=== PATIENT | male | born 1950 | race Caucasian/White ===

== ENCOUNTER 2017-11-21 13:25 | Emergency (ER) | payer MEDICARE ==
[~2017-11-21 13:25] MED LIST: ASPI-891 PO; ATOR40TA69 PO; CLOP75TA14 PO; FERS325 PO; ISOS60TA4 PO; LATA1OIL MC; LISI-613 PO; SERT100T PO
[2017-11-21] MEDS ORDERED: LIDOCAINE HCL 1% 20 ML VIAL ONE (14:40)
[2017-11-21] MEDS ORDERED: AMOXICILLIN/POTASSIUM CLAV 875-125 TABLET PO ONE (15:43)
== END 2017-11-21 16:16 | disposition home or self-care (01) ==
LOC: EDH 13:25
DX: S61.411A Laceration without foreign body of right hand, initial encounter (principal); S51.031A Puncture wound without foreign body of right elbow, initial encounter; S61.213A Laceration without foreign body of left middle finger without damage to nail, initial encounter; E78.5 Hyperlipidemia, unspecified; I10 Essential (primary) hypertension; I25.10 Atherosclerotic heart disease of native coronary artery without angina pectoris; Z79.01 Long term (current) use of anticoagulants; Z98.890 Other specified postprocedural states; W54.0XXA Bitten by dog, initial encounter; Y93.89 Activity, other specified; Y92.89 Other specified places as the place of occurrence of the external cause; Y99.8 Other external cause status
CPT/HCPCS: 12042; 73080; 73130

== ENCOUNTER → 2017-12-08 | Outpatient (CLI) | payer MEDICARE | END | disposition home or self-care (01) | LOC: RAH 16:09 | PROVIDERS: ATTEND Family Medicine | DX: Z01.818 Encounter for other preprocedural examination (principal) | CPT/HCPCS: 71046 ==

== ENCOUNTER 2019-03-21 14:06 | Inpatient (IN) | payer MEDICARE | END 2019-03-24 14:39 | disposition home or self-care (01) | LOC: EDH 14:06 → 2BH 03-22 13:46 → 2CH 03-22 19:32 → 2AH 03-23 18:51 → EDHIP 18:50 | DX: A41.9 Sepsis, unspecified organism (principal); R65.21 Severe sepsis with septic shock; M62.82 Rhabdomyolysis; E87.1 Hypo-osmolality and hyponatremia; N39.0 Urinary tract infection, site not specified; N17.9 Acute kidney failure, unspecified ==

== ENCOUNTER → 2019-06-28 | Outpatient (CLI) | payer MEDICARE ==
[~2019-06-28] MED LIST changes: +AMIL5TAB8 PO; -ASPI-891 PO; -ATOR40TA69 PO; -CLOP75TA14 PO; -FERS325 PO; +FOLI0.4T2 PO; +HYDR-4060 PO; +HYDR25TA PO; -ISOS60TA4 PO; +LATA2.5D2 OP; -LISI-613 PO; +LORA0.5T2 PO; +PANT40TA25 PO; +RIVA20TA PO; +SAW450CA7 PO; +TIMO5DRO35 OP; +TRAZ-185 PO
== END | disposition home or self-care (01) ==
LOC: SHCH 09:58
PROVIDERS: ATTEND Internal Medicine Cardiovascular Disease
DX: I25.5 Ischemic cardiomyopathy (principal)
CPT/HCPCS: 93306

== ENCOUNTER → 2021-06-25 | Outpatient (CLI) | payer MEDICARE ==
[~2021-06-25] MED LIST changes: -FOLI0.4T2 PO; +FOLI0.4T6 PO; +ISOS60TA77 PO; +LATA2.5D14 OP; -LATA2.5D2 OP; +METO-391 PO; +NITR0.4T50 SL; -PANT40TA25 PO; +PANT40TA54 PO; -SAW450CA7 PO
== END | disposition home or self-care (01) ==
LOC: RAH 12:48
PROVIDERS: ATTEND Family Medicine
DX: N28.1 Cyst of kidney, acquired (principal); N40.0 Benign prostatic hyperplasia without lower urinary tract symptoms
CPT/HCPCS: 76770

== ENCOUNTER → 2021-11-03 | Outpatient (CLI) | payer MEDICARE ==
[~2021-11-03] MED LIST changes: +0.9% NACL 500ML IV.SOLN 500 ML IV SCH
[2021-11-03 14:07] LABS: BASOPHILS % (AUTO) 0.5 % (0.0-5.0); EOSINOPHILS % (AUTO) 4.2 % (0.0-8.0); HEMATOCRIT 42.5 % (42-54); LYMPHOCYTES % (AUTO) 24.4 % (21.0-51.0); MEAN CORPUSCULAR HGB CONC 31.8 g/dL (32.0-36.0); MONOCYTES % (AUTO) 8.3 % (3.0-13.0); NEUTROPHILS % (AUTO) 62.3 % (40.0-77.0); PLATELET COUNT (AUTO) 216 K/uL (130-400); RED BLOOD CELL COUNT(AUTO) 4.83 MIL/uL (4.50-6.20); RED CELL DISTRIBUTION WIDTH 15.8 % (11.0-15.5); WHITE BLOOD COUNT (AUTO) 7.5 K/uL (4.8-10.8)
[2021-11-03 14:09] LABS: APPEARANCE,URINE Cloudy (CLEAR); BILIRUBIN,URINE Negative (NEGATIVE); COLOR,URINE Yellow (YELLOW); GLUCOSE, URINE (UA) Negative (NEGATIVE); KETONES,URINE Negative (NEGATIVE); LEUKOCYTE ESTERASE ,URINE Trace (NEGATIVE); NITRATE,URINE Negative (NEGATIVE); OCCULT BLOOD,URINE Negative (NEGATIVE); PH,URINE 5.5 (5.0-8.0); PROTEIN,URINE Negative (NEGATIVE)
[2021-11-03 14:23] LABS: CREATININE 1.7 mg/dL (0.5-1.5); POTASSIUM 3.9 mmol/L (3.5-5.1)
[2021-11-03 14:26] LABS: INR 1.34 (0.85-1.15); PROTHROMBIN TIME 14.2 SEC (9.6-11.6)
[2021-11-03 14:27] LABS: PARTIAL THROMBOPLASTIN TIME 32.2 SEC (26.3-35.5)
[2021-11-03 14:37] LABS: BACTERIA,URINE Few /HPF (None Seen); MUCUS,URINE Few LPF (None Seen); RBC,URINE 0-1 /HPF (0-1); SQUAMOUS EPITHELIAL CELL,UR Few /HPF (0-2)
== END | disposition home or self-care (01) ==
LOC: DAH 10:00 → EDSTATUS 13:00
PROVIDERS: ATTEND Internal Medicine Cardiovascular Disease
DX: Z01.810 Encounter for preprocedural cardiovascular examination (principal); I20.9 Angina pectoris, unspecified; Z79.01 Long term (current) use of anticoagulants
CPT/HCPCS: 36415; 71045; 80048; 81001; 85025; 85610; 85730; 93005

== ENCOUNTER 2021-11-19 06:48 | Day surgery (SDC) | payer MEDICARE ==
[2021-11-17 09:01] LABS: BASOPHILS % (AUTO) 0.6 % (0.0-5.0); EOSINOPHILS % (AUTO) 4.4 % (0.0-8.0); HEMATOCRIT 40.7 % (42-54); LYMPHOCYTES % (AUTO) 27.4 % (21.0-51.0); MEAN CORPUSCULAR HEMOGLOBIN 27.9 pg (27.0-33.0); MEAN CORPUSCULAR HGB CONC 32.2 g/dL (32.0-36.0); MEAN CORPUSCULAR VOLUME 86.8 fL (79-99); MONOCYTES % (AUTO) 7.7 % (3.0-13.0); NEUTROPHILS % (AUTO) 59.6 % (40.0-77.0); PLATELET COUNT (AUTO) 197 K/uL (130-400); RED BLOOD CELL COUNT(AUTO) 4.69 MIL/uL (4.50-6.20); RED CELL DISTRIBUTION WIDTH 15.7 % (11.0-15.5); WHITE BLOOD COUNT (AUTO) 7.9 K/uL (4.8-10.8)
[2021-11-17 09:03] LABS: APPEARANCE,URINE Cloudy (CLEAR); BILIRUBIN,URINE Negative (NEGATIVE); COLOR,URINE Yellow (YELLOW); GLUCOSE, URINE (UA) Negative (NEGATIVE); KETONES,URINE Negative (NEGATIVE); LEUKOCYTE ESTERASE ,URINE Negative (NEGATIVE); NITRATE,URINE Negative (NEGATIVE); OCCULT BLOOD,URINE Negative (NEGATIVE); PH,URINE 5.5 (5.0-8.0); PROTEIN,URINE Negative (NEGATIVE); UROBILINOGEN,URINE 0.2 mg/dL (0.2-1.0)
[2021-11-17 09:12] LABS: INR 1.03 (0.85-1.15); PROTHROMBIN TIME 11.2 SEC (9.6-11.6)
[2021-11-17 09:14] LABS: CREATININE 1.7 mg/dL (0.5-1.5); PARTIAL THROMBOPLASTIN TIME 26.4 SEC (26.3-35.5); POTASSIUM 4.5 mmol/L (3.5-5.1)
[2021-11-17 09:18] LABS: BACTERIA,URINE Rare /HPF (None Seen); RBC,URINE 0-1 /HPF (0-1); SQUAMOUS EPITHELIAL CELL,UR Rare /HPF (0-2); WBC,URINE 0-1 /HPF (0-1)
[2021-11-18 13:55] VITALS: BP 156/81
[2021-11-19] VITALS (9 sets, daily range): BP systolic 95–116; BP diastolic 51–60
[~2021-11-19] VITALS: Ht 170.2 cm; Wt 93.5 kg
[~2021-11-19 06:48] MED LIST changes: -0.9% NACL 500ML IV.SOLN 500 ML IV SCH; +B CO1CAP5 PO; +CLOP75TA14 PO; +EVOL140S2 SQ; +FINA5TAB41 PO; -HYDR-4060 PO; -LATA2.5D14 OP; +LEVO50CA4 PO; -LORA0.5T2 PO; -NITR0.4T50 SL; +ROSU20TA31 PO; +SODI325T PO; +TAMS-1 PO; -TRAZ-185 PO; +TRAZ-187 PO
[2021-11-19] MEDS ORDERED: 0.9%NACL 1000ML 1,000 ML IV ONE (08:28)
[2021-11-19] MEDS ORDERED: NITROGLYCERIN 2 MG VIAL IV ONE (08:39)
[2021-11-19] MEDS ORDERED: SODIUM BICARB 50MEQ 50ML VIAL 50 ML ONE (08:39)
[2021-11-19] MEDS ORDERED: IOHEXOL 350 MG/ML 100ML INFUS..BTL IV ONE (08:39)
[2021-11-19] MEDS ORDERED: BIVALIRUDIN 250 MG/VIAL IV ONE (08:39)
[2021-11-19] MEDS ORDERED: HEPARIN 10,000 UNIT/10ML (1,000 UNIT/ML) VIAL ONE (08:39)
[2021-11-19] MEDS ORDERED: MIDAZOLAM HCL 1 MG/ML 2ML VIAL ONE (08:39)
[2021-11-19] MEDS ORDERED: LIDOCAINE HCL 400MG/20ML VIAL ONE (08:40)
[2021-11-19] MEDS ORDERED: FENTANYL CITRATE PF 50 MCG/1 ML 2ML VIAL ONE (08:40)
[2021-11-19] MEDS ORDERED: ICOS1CAP PO (09:49)
[2021-11-19] MEDS ORDERED: ASPIRIN 325MG EC TAB PO ONE (10:34)
[2021-11-19] MEDS ORDERED: CLOPIDOGREL 300MG TAB ONE (10:34)
[2021-11-19] MEDS: 0.9%NACL 1000ML 1,000 ML IV SCH ×2 (11:33→15:09)
== END 2021-11-19 15:11 | disposition home or self-care (01) ==
LOC: DAH 06:48
PROVIDERS: ATTEND Internal Medicine Cardiovascular Disease
DX: I25.119 Atherosclerotic heart disease of native coronary artery with unspecified angina pectoris (principal); I12.9 Hypertensive chronic kidney disease with stage 1 through stage 4 chronic kidney disease, or unspecified chronic kidney disease; N18.30 Chronic kidney disease, stage 3 unspecified; K21.9 Gastro-esophageal reflux disease without esophagitis; E78.00 Pure hypercholesterolemia, unspecified; I48.91 Unspecified atrial fibrillation; Z79.899 Other long term (current) drug therapy; Z98.890 Other specified postprocedural states; Z86.73 Personal history of transient ischemic attack (TIA), and cerebral infarction without residual deficits; Z86.711 Personal history of pulmonary embolism; Z95.5 Presence of coronary angioplasty implant and graft; Z82.49 Family history of ischemic heart disease and other diseases of the circulatory system; Z72.89 Other problems related to lifestyle; Z79.01 Long term (current) use of anticoagulants
CPT/HCPCS: 36415; 71045; 80048; 81001; 85025; 85610; 85730; 92920; 93005; 93455; A4215; A4216; A4221; A4222; A4223 ×3; A4606; A4663; C1725; C1760; C1769 ×3; C1887; C1894 ×3; J1644 ×2; J2250; J3010; J3490 ×3; J7030; Q9965; Q9967; 96360; 96361; 99156; 99157; J0583

== ENCOUNTER → 2023-04-09 | Outpatient (CLI) | payer MEDICARE ==
[~2023-04-09] MED LIST changes: +CLOP-31 PO; -CLOP75TA14 PO; +ICOS1CAP PO; -TIMO5DRO35 OP; +TIMO5DRO47 OP
[2023-04-09 12:45] LABS: CREATININE 1.5 mg/dL (0.5-1.5); POTASSIUM 3.9 mmol/L (3.5-5.1)
== END | disposition home or self-care (01) ==
LOC: LAB 10:00
PROVIDERS: ATTEND Internal Medicine Cardiovascular Disease
DX: I48.0 Paroxysmal atrial fibrillation (principal); D68.59 Other primary thrombophilia; N18.30 Chronic kidney disease, stage 3 unspecified; E78.2 Mixed hyperlipidemia
CPT/HCPCS: 36415; 80048; 83880

== ENCOUNTER 2023-08-27 06:43 | Day surgery (SDC) | payer MEDICARE ==
[2023-08-24 09:44] LABS: BASOPHILS # (AUTO) 0.04 K/uL (0.00-0.20); BASOPHILS % (AUTO) 0.5 % (0.0-5.0); EOSINOPHILS # (AUTO) 0.45 K/uL (0.00-0.70); EOSINOPHILS % (AUTO) 6.1 % (0.0-8.0); HEMATOCRIT 44.4 % (42-54); IMMATURE GRANULOCYTE ABSOLUTE 0.02 K/uL (0-1); LYMPHOCYTES # (AUTO) 2.1 K/uL (1.0-4.8); LYMPHOCYTES % (AUTO) 28.9 % (21.0-51.0); MEAN CORPUSCULAR HEMOGLOBIN 28.9 pg (27.0-33.0); MEAN CORPUSCULAR HGB CONC 32.4 g/dL (32.0-36.0); MEAN CORPUSCULAR VOLUME 89.2 fL (79-99); MONOCYTES # (AUTO) 0.7 K/uL (0.1-1.0); NEUTROPHILS # (AUTO) 4.1 K/uL (1.8-7.7); NEUTROPHILS % (AUTO) 55.2 % (40.0-77.0); PLATELET COUNT (AUTO) 177 K/uL (130-400); RED BLOOD CELL COUNT(AUTO) 4.98 MIL/uL (4.50-6.20); RED CELL DISTRIBUTION WIDTH 15.9 % (11.0-15.5); WHITE BLOOD COUNT (AUTO) 7.3 K/uL (4.8-10.8)
[2023-08-24 09:50] VITALS: BP 136/83; PULSE 68; RESP 14
[2023-08-24 09:58] LABS: CREATININE 1.6 mg/dL (0.5-1.5)
[~2023-08-27] VITALS: Ht 170.2 cm; Wt 98.2 kg
[~2023-08-27 06:43] MED LIST changes: -AMIL5TAB8 PO; +ATOR10TA69 PO; +B CO PO; -B CO1CAP5 PO; +CHOL100020 PO; -CLOP-31 PO; +DRON400T7 PO; +EVOL140P3 SQ; -EVOL140S2 SQ; +FERS325 PO; +FOLI0.8T2 PO; +GLIM1TAB18 PO; -HYDR25TA PO; +ISOS30TA92 PO; -ISOS60TA77 PO; -LATA1OIL MC; +LATA2.5D14 OU; -LEVO50CA4 PO; +LEVO75TA10 PO; -METO-391 PO; +METO-408 PO; +MONT-39 PO; -ROSU20TA31 PO; -SERT100T PO; +SERT150C PO; +TIMO.5OS OU; -TIMO5DRO47 OP
[2023-08-27 07:00] VITALS: BP 134/75; PULSE 70; RESP 18
[2023-08-27] MEDS ORDERED: 0.9%NACL 1000ML 1,000 ML IV ONE (07:47)
[2023-08-27] MEDS ORDERED: PROPOFOL 10 MG/ML 20ML VIAL IV ONE (08:08)
[2023-08-27] MEDS ORDERED: PHENYLEPHRINE HCL 10 MG/ML 1ML VIAL IV ONE (08:09)
[2023-08-27] MEDS ORDERED: SUCCINYLCHOLINE 200MG/10ML SYR ONE (08:09)
[2023-08-27] MEDS ORDERED: AMIO200T68 PO (08:47)
== END 2023-08-27 09:05 | disposition home or self-care (01) ==
LOC: DAH 06:43
PROVIDERS: ATTEND Internal Medicine Cardiovascular Disease
DX: I48.19 Other persistent atrial fibrillation (principal); I48.3 Typical atrial flutter; I12.9 Hypertensive chronic kidney disease with stage 1 through stage 4 chronic kidney disease, or unspecified chronic kidney disease; N18.30 Chronic kidney disease, stage 3 unspecified; I45.10 Unspecified right bundle-branch block; E03.9 Hypothyroidism, unspecified; E78.00 Pure hypercholesterolemia, unspecified; K21.9 Gastro-esophageal reflux disease without esophagitis; Z79.899 Other long term (current) drug therapy; Z79.01 Long term (current) use of anticoagulants; Z98.890 Other specified postprocedural states; Z82.49 Family history of ischemic heart disease and other diseases of the circulatory system
CPT/HCPCS: 80048; 85025; 36415; 92960; 82948; 93005 ×2; J0330; J7030; J2371; A4215; A4222; A4221; A4663; A4216; A4606; A4223 ×3; J2704; J3490

== ENCOUNTER → 2023-09-29 | Outpatient (CLI) | payer MEDICARE ==
[~2023-09-29] MED LIST changes: +AMIO200T68 PO; -DRON400T7 PO
[2023-09-29 12:28] LABS: CREATININE 1.8 mg/dL (0.5-1.5); POTASSIUM 4.9 mmol/L (3.5-5.1)
== END | disposition home or self-care (01) ==
LOC: LAB 09:18
PROVIDERS: ATTEND Internal Medicine Cardiovascular Disease
DX: I50.32 Chronic diastolic (congestive) heart failure (principal); R53.83 Other fatigue
CPT/HCPCS: 36415; 80048; 83880

== ENCOUNTER 2023-12-23 06:05 | Observation (INO) | payer MEDICARE ==
[2023-12-21 10:19] LABS: BASOPHILS # (AUTO) 0.06 K/uL (0.00-0.20); BASOPHILS % (AUTO) 0.8 % (0.0-5.0); EOSINOPHILS # (AUTO) 0.33 K/uL (0.00-0.70); EOSINOPHILS % (AUTO) 4.4 % (0.0-8.0); HEMATOCRIT 50.5 % (42-54); IMMATURE GRANULOCYTE ABSOLUTE 0.05 K/uL (0-1); LYMPHOCYTES # (AUTO) 2.2 K/uL (1.0-4.8); LYMPHOCYTES % (AUTO) 28.8 % (21.0-51.0); MEAN CORPUSCULAR HEMOGLOBIN 30.1 pg (27.0-33.0); MEAN CORPUSCULAR HGB CONC 31.7 g/dL (32.0-36.0); MEAN CORPUSCULAR VOLUME 94.9 fL (79-99); MONOCYTES # (AUTO) 0.6 K/uL (0.1-1.0); MONOCYTES % (AUTO) 7.8 % (3.0-13.0); NEUTROPHILS # (AUTO) 4.3 K/uL (1.8-7.7); NEUTROPHILS % (AUTO) 57.5 % (40.0-77.0); PLATELET COUNT (AUTO) 206 K/uL (130-400); RED BLOOD CELL COUNT(AUTO) 5.32 MIL/uL (4.50-6.20); WHITE BLOOD COUNT (AUTO) 7.5 K/uL (4.8-10.8)
[2023-12-21 10:20] LABS: CREATININE 1.6 mg/dL (0.5-1.5); POTASSIUM 4.7 mmol/L (3.5-5.1)
[2023-12-21 10:25] LABS: INR 1.18 (0.85-1.15); PROTHROMBIN TIME 13.5 SEC (9.6-11.6)
[2023-12-21 10:36] VITALS: BP 136/78; PULSE 82; RESP 18
[2023-12-23] VITALS (30 sets, daily range): BP systolic 112–136; BP diastolic 50–85; PULSE 64–74; RESP 12–20; O2SAT 94–97
[~2023-12-23] VITALS: Ht 170.2 cm; Wt 103.2 kg
[~2023-12-23 06:05] MED LIST changes: -AMIO200T68 PO; -B CO PO; -ICOS1CAP PO; -METO-408 PO; -SODI325T PO
[2023-12-23] MEDS: 0.9%NACL 1000ML 1,000 ML IV ONE (06:41)
[2023-12-23] MEDS ORDERED: AMIO200T68 PO (06:58)
[2023-12-23] MEDS ORDERED: TIMO5SOL10 OP (06:58)
[2023-12-23] MEDS ORDERED: GLYCOPYRROLATE 0.2 MG/ML 5 ML VIAL ONE (07:20)
[2023-12-23] MEDS ORDERED: ONDANSETRON 4MG INJ ONE (07:20)
[2023-12-23] MEDS ORDERED: LIDOCAINE PF 100MG/5ML (2%) SYRINGE 5ML ONE (07:20)
[2023-12-23] MEDS ORDERED: MIDAZOLAM HCL 1 MG/ML 2ML VIAL ONE (07:21)
[2023-12-23] MEDS ORDERED: NEOSTIGMINE METHYLSULFATE 1MG/ML IV ONE (07:21)
[2023-12-23] MEDS ORDERED: KETAMINE 50MG/ML SYRINGE 50 MG/ML DISP.SYRIN ONE (07:21)
[2023-12-23] MEDS ORDERED: PROPOFOL 10 MG/ML 20ML VIAL IV ONE (07:21)
[2023-12-23] MEDS ORDERED: ROCURONIUM BROMIDE 10MG/1ML 5ML VL ONE ×2 (07:21→09:19)
[2023-12-23] MEDS ORDERED: HEPARIN 10,000 UNIT/10ML (1,000 UNIT/ML) VIAL ONE ×2 (07:22→08:43)
[2023-12-23] MEDS ORDERED: LIDOCAINE HCL 400MG/20ML VIAL ONE (07:22)
[2023-12-23] MEDS ORDERED: PHENYLEPHRINE HCL 10 MG/ML 1ML VIAL IV ONE ×2 (08:00→10:44)
[2023-12-23] MEDS ORDERED: EPHEDRINE SULFATE 50 MG/ML AMPULE ONE (08:34)
[2023-12-23] MEDS ORDERED: PROTAMINE SULFATE 10 MG/ML 5 ML VIAL ONE (11:45)
[2023-12-23] MEDS ORDERED: ACETAMINOPHEN 325 MG TAB PO PRN (17:00)
[2023-12-23] MEDS: PANTOPRAZOLE 40 MG TAB DR PO SCH (17:10)
[2023-12-23] MEDS: SUCRALFATE 1 GM TABLET PO SCH (17:10)
[2023-12-23] MEDS: TIMOLOL MALEATE 0.5% 5 ML BOTTLE OU SCH (19:49)
[2023-12-23] MEDS: TRAZODONE HCL 100 MG TABLET PO SCH (20:28)
[2023-12-23] MEDS: RIVAROXABAN 20 MG TABLET PO SCH (20:29)
[2023-12-23] MEDS: SERTRALINE HCL 50 MG TABLET PO SCH (20:29)
[2023-12-23] MEDS: MONTELUKAST SODIUM 10 MG TAB PO SCH (20:29)
[2023-12-23] MEDS: FINASTERIDE 5 MG TABLET PO SCH (20:29)
[2023-12-23] MEDS: TAMSULOSIN HCL 0.4 MG CAP.ER.24H PO SCH (20:30)
[2023-12-23] MEDS: TIMOLOL MALEATE 0.5% 5 ML BOTTLE OP SCH (20:30)
[2023-12-23] MEDS: LATANOPROST 2.5 ML DROPS OU SCH (20:30)
[2023-12-23] MEDS ORDERED: SERTRALINE HCL 150 MG PO SCH (21:00)
[2023-12-23] MEDS ORDERED: TIMOLOL MALEATE OP SCH (21:00)
[2023-12-24 00:10] VITALS: BP 107/47; PULSE 75; RESP 18
[2023-12-24 03:33] VITALS: BP 119/62; PULSE 84; RESP 18
[2023-12-24] MEDS: LEVOTHYROXINE 75 MCG TABLET PO SCH (06:38)
[2023-12-24 08:00] VITALS: BP 131/72; PULSE 75; RESP 18; O2SAT 98
[2023-12-24] MEDS ORDERED: PANTOPRAZOLE 40 MG TAB DR PO SCH (09:00)
[2023-12-24] MEDS: ISOSORBIDE MONO 30MG SR TAB PO SCH (09:06)
[2023-12-24] MEDS: PANTOPRAZOLE 40 MG TAB DR PO SCH (09:06)
[2023-12-24] MEDS ORDERED: GLIMEPIRIDE PO SCH (12:00)
[2023-12-24] MEDS: GLIMEPIRIDE 2 MG TABLET PO SCH (12:05)
[2023-12-24 12:33] VITALS: BP_SYST 134; PULSE 75; RESP 20
[2023-12-24] MEDS ORDERED: PANT40TA55 PO (12:41)
[2023-12-24] MEDS ORDERED: SUCR1TAB2 PO (12:41)
== END 2023-12-24 13:39 | disposition home or self-care (01) ==
LOC: DAH 06:05 → DAHIP 06:06 → 2DH 14:41
PROVIDERS: ADMIT Internal Medicine Cardiovascular Disease; ATTEND Internal Medicine Cardiovascular Disease
DX: I48.0 Paroxysmal atrial fibrillation (principal); I25.10 Atherosclerotic heart disease of native coronary artery without angina pectoris; I10 Essential (primary) hypertension; E78.00 Pure hypercholesterolemia, unspecified; K21.9 Gastro-esophageal reflux disease without esophagitis; E78.5 Hyperlipidemia, unspecified; E66.01 Morbid (severe) obesity due to excess calories; Z86.73 Personal history of transient ischemic attack (TIA), and cerebral infarction without residual deficits; Z79.899 Other long term (current) drug therapy
CPT/HCPCS: 80048; 85025; 85610; 85730; 36415; 93005; 93656; 93657 ×2; 85347 ×9; 82948 ×2; A4344; C1894 ×4; C1732 ×2; C1893; A4215 ×2; C1731; A4649 ×2; G0378 ×25; J3490 ×6; J7030; J2001; J2720; J1644 ×3; J2250; J2704; J2405; J2710; J2371 ×2; A4223 ×3; A4222; A4221; A4663; A4216; A4606

== ENCOUNTER 2025-04-07 16:26 | Emergency (ER) | payer MEDICARE ==
[~2025-04-07] VITALS: Ht 170.2 cm; Wt 82.6 kg
[~2025-04-07 16:26] MED LIST changes: -GLIM1TAB18 PO; +GLIM1TAB56 PO; +PANT40TA55 PO; +SUCR1TAB2 PO; -TAMS-1 PO; +TAMS-55 PO; +TIMO5SOL10 OP
--- NOTE | 2025-04-07 17:11 | ERN ---
General Chief Complaint: Dizzy/Light Headed Stated Complaint: VERTIGO Time Seen by MD: 16:43 Source: patient History of Present Illness Initial Comments Patient is a 75-year-old male with past medical history of CABG followed by atrial fibrillation followed by ablation. He also has a diagnosis of CHF and left knee replacement. He comes in with a complaint of vertigo. It started yesterday when he got out of bed walked across the room while looking at the floor and then looked up raising his head. This was immediately followed by a loss of balance. He states that he has had these episodes of loss of balance off and on but that yesterday's episode was the worst. Timing/Duration: 24 hours Severity: mild Associated Symptoms: denies symptoms Allergies: Coded Allergies: No Known Allergies (Verified Allergy, 01/12/14) Home Meds Active Scripts Pantoprazole Sodium (Protonix) 40 Mg Ectab, 40 MG PO DAILY, #14 TAB.EC 0 Refills Prov:BRITTANY HERNANDEZ MD 12/24/23 Reported Medications Loperamide HCl (Loperamide) 2 Mg Capsule, 2 CAP PO AD for loose stool for 5 Days, #40 CAP 0 Refills 04/07/25 Pindolol (Pindolol) 10 Mg Tablet, 0.5 TAB PO BID for 30 Days, #30 TAB 0 Refills 04/07/25 Sodium Bicarbonate (Sodium Bicarbonate) 325 Mg Tablet, 1 TAB PO DAILY for indigestion for 30 Days, #60 TAB 0 Refills 04/07/25 Folic Acid/Vitamin B Comp W-C (Suzanne-Suzette Tablet) 0.8 Mg Tablet, 1 TAB PO DAILY for 30 Days, #30 TAB 0 Refills 04/07/25 Sertraline HCl (Sertraline HCl) 100 Mg Tablet, 1 TAB PO DAILY for 30 Days, #30 TAB 0 Refills 04/07/25 Levothyroxine Sodium (Levothyroxine) 125 Mcg Capsule, 1 CAP PO DAILY for 30 Days, #30 CAP 0 Refills 04/07/25 Timolol Maleate (Timolol Maleate) 0.5 % Giselle.gel, 1 DROP OP BID 12/23/23 Cholecalciferol (Vitamin D3) (Vitamin D3) 25 Mcg (1000 Unit) Tablet, 25 MCG PO DAILY, TAB 08/24/23 Atorvastatin Calcium (Atorvastatin Calcium) 10 Mg Tablet, 5 MG PO HS, TAB 08/24/23 Latanoprost (Latanoprost) 0.005 % Drops, 1 DROP OU HS 08/24/23 Evolocumab (Repatha Sureclick) 140 Mg/Ml Pen.injctr, 1 ML SQ [id number] 08/24/23 Finasteride (Finasteride) 5 Mg Tablet, 5 MG PO HS, TAB 11/18/21 Trazodone HCl (Trazodone HCl) 100 Mg Tablet, 100 MG PO HS, TAB 11/18/21 Rivaroxaban (Xarelto) 20 Mg Tablet, 20 MG PO HS, TAB 03/22/19 Folic Acid (Folic Acid) 0.4 Mg Tablet, 1 MG PO DAILY, TAB 03/22/19 Discontinued Reported Medications Ferrous Sulfate (Ferrous Sulfate) 325 Mg (65 Mg Iron) Ectab, 325 MG PO DAILY, TAB.EC 08/24/23 Folic Acid/Vitamin B Comp W-C (Nephro-Suzette Tablet) 0.8 Mg Tablet, 0.8 MG PO DAILY, TAB 08/24/23 Isosorbide Mononitrate (Isosorbide Mononitrate ER) 30 Mg Tab.er.24h, 15 MG PO DAILY, TAB 08/24/23 Montelukast Sodium (Montelukast Sodium) 10 Mg Tablet, 10 MG PO HS, TAB 08/24/23 Timolol Maleate (Timoptic 0.5% Ophth Soln) 0.5 % Opsol, 1 DROP OU BID 08/24/23 Glimepiride (Glimepiride) 1 Mg Tablet, 1 TAB PO NOON 08/24/23 Levothyroxine Sodium (Levothyroxine Sodium) 75 Mcg Tablet, 75 MCG PO ACBKFST, TAB 08/24/23 Sertraline HCl (Sertraline HCl) 150 Mg Capsule, 150 MG PO HS, CAP 08/24/23 Tamsulosin HCl (Flomax) 0.4 Mg Cap.er.24h, 0.4 MG PO HS, CAPSULE.DR 11/18/21 Pantoprazole Sodium (Pantoprazole Sodium) 40 Mg Tablet.dr, 40 MG PO DAILY, TAB 03/22/19 Discontinued Scripts Sucralfate (Sucralfate) 1 Gram Tablet, 1 GM PO QID, #600 TAB 0 Refills Prov:BRITTANY HERNANDEZ MD 12/24/23 Past Medical History Past Medical History: Arrythmia, CHF Medical History Other: SVT, PREDIABETIC Past Surgical History: CABG Surgical History Other: CARDIOVERSION, L KNEE REPLACEMENT Constitutional: (-) chills, (-) diaphoresis, (-) fever, (-) malaise, (-) weakness, (-) other documentation EENTM: (-) eye pain, (-) blurred vision, (-) tearing, (-) double vision, (-) ear pain, (-) ear discharge, (-) nose pain, (-) nose congestion, (-) throat pain, (-) Throat swelling, (-) mouth pain, (-) tooth pain, (-) mouth swelling, (-) other documentation Respiratory: (-) cough, (-) orthopnea, (-) short of breath, (-) stridor, (-) wheezing, (-) other documentation Cardiovascular: (-) chest pain, (-) edema, (-) palpitations, (-) syncope, (-) dyspnea on exertion, (-) other documentation Gastrointestinal/Abdominal: (+) diarrhea Musculoskeletal: (-) Neck pain, (-) back pain, (-) Flank Pain, (-) joint pain, (-) joint swelling, (-) muscle pain, (-) muscle stiffness, (-) gout, (-) other documentation Skin: (-) laceration, (-) contusion, (-) abrasion, (-) abscess, (-) rash, (-) change in color, (-) change in hair, (-) change in nails, (-) diaphoresis, (-) dryness, (-) other documentation Physical Exam General Appearance: (+) no apparent distress Orientation: (+) alert, (+) oriented x 3 Head/Face Trauma: No Eye: bilateral eye normal inspection, bilateral eye PERRL, bilateral eye EOMI Ear, Nose, Throat: (+) hearing grossly normal, (+) normal ENT inspection, (+) moist mucous membraine, (+) normal TM Ear, Nose, Throat Comment External ear canals bilaterally have excoriations and scabs from Q-tip use. Neck: (+) normal inspection, (+) full range of motion, (+) no JVD Respiratory: (+) chest non-tender, (+) lungs clear, (+) well ventilated Heart: (+) regular, (+) no gallop Vascular: (+) no edema, (+) normal peripheral pulse Extremities Comment Severe skin tenting bilateral hands Skin: (+) normal color, (+) warm/dry Results Laboratory and Microbiology Lab and Micro Result Laboratory Tests Test 04/07/25 17:33 White Blood Count 8.3 K/uL (4.8-10.8) Red Blood Count 4.60 MIL/uL (4.50-6.20) Hemoglobin 13.7 g/dL (14.0-18.0) L Hematocrit 42.4 % (42-54) Mean Corpuscular Volume 92.2 fL (79-99) Mean Corpuscular Hemoglobin 29.8 pg (27.0-33.0) Mean Corpuscular Hemoglobin Concent 32.3 g/dL (32.0-36.0) Red Cell Distribution Width 14.5 % (11.0-15.5) Platelet Count 175 K/uL (130-400) Mean Platelet Volume 8.7 fL (7.5-10.5) Immature Granulocyte % (Auto) 0.4 % (0-1) Neutrophils (%) (Auto) 67.5 % (40.0-77.0) Lymphocytes (%) (Auto) 20.9 % (21.0-51.0) L Monocytes (%) (Auto) 7.4 % (3.0-13.0) Eosinophils (%) (Auto) 3.3 % (0.0-8.0) Basophils (%) (Auto) 0.5 % (0.0-5.0) Neutrophils # (Auto) 5.6 K/uL (1.8-7.7) Lymphocytes # (Auto) 1.7 K/uL (1.0-4.8) Monocytes # (Auto) 0.6 K/uL (0.1-1.0) Eosinophils # (Auto) 0.27 K/uL (0.00-0.70) Basophils # (Auto) 0.04 K/uL (0.00-0.20) Absolute Immature Granulocyte (auto 0.03 K/uL (0-1) Nucleated Red Blood Cells 0.0 % (0.0-0.19) Sodium Level 146 mmol/L (136-145) H Potassium Level 3.6 mmol/L (3.5-5.1) Chloride Level 109 mmol/L (101-111) Carbon Dioxide Level 26 mmol/L (21-32) Blood Urea Nitrogen 15 mg/dL (7-18) Creatinine 1.3 mg/dL (0.5-1.3) Glomerular Filtration Rate Calc 57 mL/min (>90) Random Glucose 86 mg/dL (70-105) Total Calcium 8.9 mg/dL (8.5-10.1) Troponin I High Sensitivity 11 ng/L (4-75) B-Type Natriuretic Peptide 39 pg/mL (0-100) MDM Talking to the patient it is hard to get clarity as to whether he has vertigo or simple lightheadedness. The loss of balance with simple raising of his head seems to indicate vertigo but he does not describe the room spinning he simply says he seems to lose his balance. When I questioned him about dehydration he mentioned he is on an Ozempic trial that cause him to have diarrhea and dehy dration is something that he thinks could be possible. Patient's chemistry panel is come back normal compared to his usual baseline values of slightly elevated creatinine. In addition his BNP and troponin are normal. His CBC is normal. He has received 500 cc of fluid. I asked him to stand up and he states that he feels much better. I will continue to deliver the rest of the IV bag. And then possibly give another L of fluid after this one before discharging him from the ED. ED Course Orders Procedure Category Date Status Time Lactated Ringers PHA 04/07/25 Complete 1000ml (Lactated 17:18 12 Lead Ekg Tracing- EKG 04/07/25 Complete Technical 17:18 B-Type Natriuretic LAB 04/07/25 Complete Peptide 17:18 Basic Metabolic Panel LAB 04/07/25 Complete 17:18 Cbc With Differential LAB 04/07/25 Complete 17:18 Troponin I High LAB 04/07/25 Complete Sensitivity 17:18 Urinalysis Profile LAB 04/07/25 Logged 17:18 Potassium Bicarb/Cit PHA 04/07/25 Complete Ac 25meq (K-Lyte Ta 19:00 Current Medications Medications (Trade) Dose Ordered Sig/Emerita Route PRN Reason Start Time Stop Time Status Last Admin Dose Admin Lactated Ringer's (Lactated Ringers 1000ml) 1,000 ml BOLUS STAT IV 04/07/25 17:18 04/07/25 17:20 DC 04/07/25 17:46 Potassium Bicarbonate (K-Lyte Tablet Eff 25 Meq Tablet.eff) 50 meq ONCE ONCE PO 04/07/25 19:00 04/07/25 18:57 DC Vital Signs Date Time Temp Pulse Resp B/P (MAP) Pulse Ox O2 Delivery O2 Flow Rate FiO2 04/07/25 19:35 97.7 88 18 146/71 97 Room Air* 0 21 04/07/25 17:49 83 16 153/81 98 Room Air* 0 21 04/07/25 16:31 98.2 80 18 140/82 96 Room Air 0 7:00 p.m. patient was signed out to me by a.m. physician This is a 75-year-old male who came in with complaints of feeling lightheaded and dizzy when he moves his neck to the back. He also has been having chronic diarrhea as he is in a clinical trial with a GLP 1 agent. No headache, no history of any room spinning no blurred vision diplopia motor weakness or seizure activity. Just saw his control electrician a week ago. No nausea or vomitings. Denies room spinning. No history of any injury to the neck. Temperature 98.2 pulse 86 respirations 18 blood pressure 140/82 with a pulse oximetry of 96% on room air His chronic medical problems include coronary artery disease status post CABG, hypothyroidism, hyper lipidemia and history of SVT status post cardioversion last year Labs reviewed CBC with a normal limits BNP 7 shows a sodium of 146 BUN and creatinine are 15 and 1.3 Patient received fluids and admits to feeling much better 7:45 p.m. during my evaluation, I updated the patient and spouse on all the available information and possibilities-may simply be due to dehydration and orthostasis however cervical spine issues could also be causing the same symptoms. He will follow up with his primary care physician or and returned to the ER should his symptoms get worse DX & DISP Disposition: Discharge Departure Impression: Primary Impression: Dizziness after extension of neck Additional Impression: Diarrhea Condition: Stable Additional Instructions: Patient and the caregiver have been informed of all the diagnostic tests and the imaging conducted during the today's visit to the emergency room and has verbalized understanding of the results I have personally reviewed and interpreted all diagnostic exams performed here in the ER today as well as the vital signs documented by the nursing staff. The patient is now being discharged to home and should follow up with the primary care physician or the specialist as directed by the ER staff. Follow-up with primary care provider in 1 to 2 days. Take medications as directed here in the emergency room. Okay to continue home medications unless otherwise discussed during your visit in the emergency room today. Return to your nearest emergency room if symptoms worsen or if there is no improvement. Call 911 if you need immediate assistance. Take Tylenol or Motrin [id number] as needed and if no contraindications are present. Increase oral hydration. A wound culture or urine culture was ordered here in the emergency room department please follow-up with primary care provider and advise them to get repeat ports from our facility. If you had any Baldo wrap/splints that were applied here, please do not remove them until you see your primary care or specialty. Referrals: GUZMAN MULLER MD (PCP) VERNON BEAVERS MD April 07, 2025 17:11 PEDRO MASTERSON MD April 07, 2025 20:06
--- NOTE | 2025-04-07 17:37 | EKG ---
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
[2025-04-07 17:44] LABS: BASOPHILS # (AUTO) 0.04 K/uL (0.00-0.20); BASOPHILS % (AUTO) 0.5 % (0.0-5.0); EOSINOPHILS # (AUTO) 0.27 K/uL (0.00-0.70); EOSINOPHILS % (AUTO) 3.3 % (0.0-8.0); HEMATOCRIT 42.4 % (42-54); IMMATURE GRANULOCYTE ABSOLUTE 0.03 K/uL (0-1); LYMPHOCYTES # (AUTO) 1.7 K/uL (1.0-4.8); LYMPHOCYTES % (AUTO) 20.9 % (21.0-51.0); MEAN CORPUSCULAR HEMOGLOBIN 29.8 pg (27.0-33.0); MEAN CORPUSCULAR HGB CONC 32.3 g/dL (32.0-36.0); MEAN CORPUSCULAR VOLUME 92.2 fL (79-99); MONOCYTES # (AUTO) 0.6 K/uL (0.1-1.0); MONOCYTES % (AUTO) 7.4 % (3.0-13.0); NEUTROPHILS # (AUTO) 5.6 K/uL (1.8-7.7); NEUTROPHILS % (AUTO) 67.5 % (40.0-77.0); PLATELET COUNT (AUTO) 175 K/uL (130-400); RED CELL DISTRIBUTION WIDTH 14.5 % (11.0-15.5); WHITE BLOOD COUNT (AUTO) 8.3 K/uL (4.8-10.8)
[2025-04-07] MEDS: LACTATED RINGERS 1000ML IV STA (17:46)
[2025-04-07 18:03] LABS: CREATININE 1.3 mg/dL (0.5-1.3); POTASSIUM 3.6 mmol/L (3.5-5.1)
[2025-04-07 18:06] LABS: B-TYPE NATRIURETIC PEPTIDE 39 pg/mL (0-100)
[2025-04-07] MEDS ORDERED: SERT-440 PO (18:19)
[2025-04-07] MEDS ORDERED: SODI325T PO (18:19)
[2025-04-07] MEDS ORDERED: FOLI0.8T22 PO (18:19)
[2025-04-07] MEDS ORDERED: PIND10TA8 PO (18:19)
[2025-04-07] MEDS ORDERED: LOPE2CAP PO (18:19)
[2025-04-07] MEDS ORDERED: LEVO125C5 PO (18:19)
[2025-04-07] MEDS ORDERED: PoTASSium BIcarbonate/CIT AC 25 MEQ TABLET.EFF PO ONE (19:00)
[2025-04-07 20:21] VITALS: BP 141/72; PULSE 82; RESP 18; TEMP 97.9; O2SAT 97
== END 2025-04-07 20:22 | disposition home or self-care (01) ==
LOC: EDH 16:26
DX: R42 Dizziness and giddiness (principal); R19.7 Diarrhea, unspecified; I50.9 Heart failure, unspecified; Z79.890 Hormone replacement therapy; Z79.899 Other long term (current) drug therapy; Z95.1 Presence of aortocoronary bypass graft; Z96.652 Presence of left artificial knee joint
CPT/HCPCS: 99284; 96360; 84484; 80048; 83880; 85025; 36415; 93005; J7120